=== PATIENT | female | born 1955 | race Caucasian/White ===

== ENCOUNTER → 2019-12-30 | Outpatient (CLI) | payer BC | LOC: MAMMO 15:57 | DX: Z12.31 Encounter for screening mammogram for malignant neoplasm of breast (principal); N63.11 Unspecified lump in the right breast, upper outer quadrant ==

== ENCOUNTER → 2021-02-16 | Outpatient (CLI) | payer MEDICARE | LOC: MAMMO 10:00 | DX: Z12.31 Encounter for screening mammogram for malignant neoplasm of breast (principal); N64.89 Other specified disorders of breast ==

== ENCOUNTER → 2021-02-28 | Outpatient (CLI) | payer MEDICARE | LOC: MAMMO 07:43 | DX: N60.01 Solitary cyst of right breast (principal); N64.89 Other specified disorders of breast ==

== ENCOUNTER → 2023-04-24 | Outpatient (CLI) | payer MEDICARE | LOC: MAMMO 13:30 | DX: Z12.31 Encounter for screening mammogram for malignant neoplasm of breast (principal) ==